=== PATIENT | female | born 1940 | race Caucasian/White ===

== ENCOUNTER 2019-01-19 09:12 | Emergency (ER) | payer MEDICARE, SELFPAY ==
[2019-01-19 09:13] VITALS: BP 141/64; PULSE 83; RESP 18; TEMP 36.6; O2SAT 98; BMI 16.8
[2019-01-19 09:29] VITALS: BP 129/66; PULSE 78; RESP 16; O2SAT 97
--- NOTE | 2019-01-19 09:38 | ED.DCSUM_ITS ---
History of Present Illness Chief Complaint: GI Bleed Informant: Significant Other, SNF Limited by: Dementia - Patient is an elderly woman with significant dementia who was recently diagnosed with colon cancer with 3+ nodes. states there was a family discussion and they decided to forego radiation or chemotherapy. Patient has significant dementia. She was unable to answer questions. 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 Status: Acute Past Medical History - Allergies and Home Meds Allergies/Adverse Reactions: Allergies No Known Allergies Allergy (Verified 01/19/19 09:32) Primary Care Physician: Rom Shah MD [Primary Care Provider] - Smoking Status: Never smoker Review of Systems ROS: Unable to Obtain Gastrointestinal: Reports: Vomiting - With possible blood/coffee-ground Physical Exam Vital Signs/Narrative: Vital Signs Temp Pulse Resp BP Pulse Ox 01/19/19 09:13 98 F 83 18 141/64 H 98 Inital Vital Signs reviewed: Yes General: Well developed, Cachectic Head: Normocephalic, Atraumatic Eyes: Perrl, EOMI ENT: Moist mucous membranes, No rhinorrhea Neck: Supple, Nontender, No lymphadenopathy, No JVD Cardiovascular: Regular rate, Regular rhythm, No murmurs, Normal S1, Normal S2 Respiratory: No distress, CTA bilaterally, Chest nontender Abdomen: Soft, Nontender, Nondistended, Normal bowel sounds, No masses, - - Br own soft stool noted in colostomy bag. Back: Nontender Extremities: Nontender, No edema Skin: No rash, Pallor Neurological: Alert, Cranial nerves II-XII grossly intact. Negative for: Oriented x3, Normal Strength, Normal Sensation Psychological: - - Unable to determine Diagnostic/Tx/Re-eval 01/19/19 09:30 Abdomen Single View (Portable) [RAD] Stat Laboratory Results 01/19/19 01/19/19 09:55 09:55 WBC 7.8 RBC 4.85 Hgb 15.0 Hct 45.7 MCV 94.2 MCH 30.9 MCHC 32.8 RDW 14.6 RDW Differential 49.1 H Plt Count 249 MPV 10.2 Immature Gran % (Auto) 0.000 Neut % (Auto) 88.7 H Lymph % (Auto) 6.[address] [place] % (Auto) 4.3 Eos % (Auto) 0.5 Baso % (Auto) 0.1 Absolute Neuts (auto) 7.0 Absolute Lymphs (auto) 0.50 L Total Counted Not Reportable Sodium 138 Potassium 4.0 Chloride 101 Carbon Dioxide 29.0 Anion Gap 8 BUN 23 H Creatinine 0.71 Estim Creat Clear Calc 29.56 Est GFR (MDRD) Af Amer 103 Est GFR (MDRD) Non-Af 85 BUN/Creatinine Ratio 32.6 H Glucose 194 H Calcium 9.5 - Medical Decision Making states she did not undergo chemoradiation therapy to gain a few more months versus quality of life. Discussed specifically CODE STATUS. Per discussion no CPR or intubation. Once results are back will discuss specifics. To evaluate patient's presentation NG was placed is to determine if there is active bleeding. CBC to assess H&H and if there is a drop as well as basic metabolic panel to evaluate for elevated BUN to creatinine ratio. NG reveals greenish bilious emesis. There is no blood or coffee grounds noted. BUN to creatinine ratio is elevated consistent with dehydration. 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
[2019-01-19] MEDS: Ondansetron 4 MG/2 ML Vial IV (09:55)
[2019-01-19 10:20] LABS: Basophil# 0.01 X10^3/uL; Basophil% 0.1 % (0-1); Differential Indicated SCAN CRITERIA MET; Eosinophil# 0.04 X10^3/uL; Eosinophils% 0.5 % (0-5); Hematocrit 45.7 % (37-47); Lymphocyte % 6.4 % (19-41); Mean Corp Hgb Conc 32.8 g/gl (32-36); Mean Corpuscular Hgb 30.9 pg (27.0-32.0); Mean Corpuscular Volume 94.2 fL (81-99); Mean Platelet Vol. 10.2 fl (6.2-12.0); Monocyte# 0.34 X10^3/uL; Monocyte% 4.3 % (0-10); Neutrophil # 6.95 X10^3/uL (2.7-7.7); Neutrophil % 88.7 % (47-70); POSITIVE COUNT NO; POSITIVE DIFFERENTIAL YES; POSITIVE MORPHOLOGY NO; Platelet Count 249 K/mm3 (150-450); RBC Distribution Width CV 14.6 % (11.6-14.6); RBC Distribution Width SD 49.1 fl (35.1-43.9); Red Blood Count 4.85 M/mm3 (4.2-5.4); White Blood Count 7.8 K/mm3 (4.4-11.0)
[2019-01-19 10:23] LABS: Anion Gap 8 (5-15); BUN 23 mg/dL (7-18); BUN/Creat Ratio 32.6 RATIO (10-20); Calcium,Total 9.5 mg/dL (8.5-10.1); Chloride 101 mmol/L (98-107); Creatinine, Serum 0.71 mg/dL (0.55-1.02); EST Glomerular Filtration Rate 85 mL/min (>60); Est Glom Filt Rate - Afr Amer 103 mL/min (>60); Estimated Creatinine Clearance 29.56 ml/min; Glucose 194 mg/dL (74-106); Sodium Level 138 mmol/L (136-145)
[2019-01-19 11:33] VITALS: BP 132/74; O2SAT 97
== END 2019-01-19 12:25 ==
PROVIDERS: Emergency Provider Emergency Medicine; Family Provider Family Medicine; PCP Family Medicine
DX: R11.2 Nausea with vomiting, unspecified (principal); C18.9 Malignant neoplasm of colon, unspecified; C77.2 Secondary and unspecified malignant neoplasm of intra-abdominal lymph nodes; F03.90 Unspecified dementia, unspecified severity, without behavioral disturbance, psychotic disturbance, mood disturbance, and anxiety; Z93.3 Colostomy status; Z66 Do not resuscitate
CPT/HCPCS: 80048; 85025; 96374; 99285; A4216; J2405

== ENCOUNTER → 2019-09-08 05:00 | Outpatient (REF) | payer MEDICARE, SELFPAY ==
[2019-09-08 09:01] LABS: Absolute Neutrophil Count 3.4 X10^3/uL (2.0-7.7); Basophil# 0.03 X10^3/uL; Basophil% 0.6 % (0-1); Eosinophil# 0.19 X10^3/uL; Eosinophils% 3.5 % (0-5); Hematocrit 34.5 % (37-47); Hemoglobin 11.3 g/dL (12.0-15.0); Lymphocyte % 22.3 % (19-41); Mean Corp Hgb Conc 32.8 g/dL (32-36); Mean Corpuscular Hgb 32.4 pg (27.0-32.0); Mean Corpuscular Volume 98.9 fL (81-99); Mean Platelet Vol. 10.1 fl (6.2-12.0); Monocyte# 0.52 X10^3/uL; Monocyte% 9.7 % (0-10); NRBC Flagged by Analyzer 0 % (0-5); Neutrophil # 3.42 X10^3/uL (2.7-7.7); Neutrophil % 63.7 % (47-70); POSITIVE MORPHOLOGY YES; Platelet Count 264 K/mm3 (150-450); RBC Distribution Width CV 23.4 % (11.6-14.6); RBC Distribution Width SD 82.8 fl (35.1-43.9); Red Blood Count 3.49 M/mm3 (4.2-5.4); White Blood Count 5.4 K/mm3 (4.4-11.0)
[2019-09-08 09:07] LABS: Differential Indicated SCAN CRITERIA MET
[2019-09-08 09:44] LABS: Anisocytosis 2+; Differential Comment SCANNED
== END ==
LOC: OLS.DANBUR 05:00
DX: F03.90 Unspecified dementia, unspecified severity, without behavioral disturbance, psychotic disturbance, mood disturbance, and anxiety (principal); C18.9 Malignant neoplasm of colon, unspecified
CPT/HCPCS: 36415; 85025

== ENCOUNTER → 2019-09-12 05:00 | Outpatient (REF) | payer MEDICARE, SELFPAY ==
[2019-09-12 08:17] LABS: Hematocrit 34.2 % (37-47); Hemoglobin 11.4 g/dL (12.0-15.0); Mean Corp Hgb Conc 33.3 g/dL (32-36); Mean Corpuscular Hgb 33.3 pg (27.0-32.0); POSITIVE MORPHOLOGY YES; Platelet Count 236 K/mm3 (150-450); RBC Distribution Width CV 23.8 % (11.6-14.6); RBC Distribution Width SD 84.7 fl (35.1-43.9); Red Blood Count 3.42 M/mm3 (4.2-5.4); White Blood Count 6.3 K/mm3 (4.4-11.0)
[2019-09-12 08:18] LABS: Scan Indicated on CBC? Y/N YES- FLAGS NOTED
[2019-09-12 08:51] LABS: Differential Comment SCANNED
== END ==
LOC: OLS.DANBUR 05:00
DX: F03.90 Unspecified dementia, unspecified severity, without behavioral disturbance, psychotic disturbance, mood disturbance, and anxiety (principal); C18.9 Malignant neoplasm of colon, unspecified
CPT/HCPCS: 36415; 85027

== ENCOUNTER → 2019-09-21 05:00 | Outpatient (REF) | payer MEDICARE, SELFPAY ==
[2019-09-21 09:13] LABS: Hematocrit 34.1 % (37-47); Hemoglobin 11.4 g/dL (12.0-15.0); Mean Corp Hgb Conc 33.4 g/dL (32-36); Mean Corpuscular Hgb 33.9 pg (27.0-32.0); Mean Corpuscular Volume 101.5 fL (81-99); Mean Platelet Vol. 10.7 fl (6.2-12.0); POSITIVE MORPHOLOGY YES; Platelet Count 222 K/mm3 (150-450); RBC Distribution Width CV 23.4 % (11.6-14.6); RBC Distribution Width SD 84.4 fl (35.1-43.9); Red Blood Count 3.36 M/mm3 (4.2-5.4); White Blood Count 7.5 K/mm3 (4.4-11.0)
[2019-09-21 09:34] LABS: Scan Indicated on CBC? Y/N YES- FLAGS NOTED
[2019-09-21 10:01] LABS: Differential Comment SCANNED
[2019-09-22 15:36] LABS: Carcinoembryonic Antigen 198.5 ng/mL (0.0-4.7)
== END ==
LOC: OLS.DANBUR 05:00
DX: F03.90 Unspecified dementia, unspecified severity, without behavioral disturbance, psychotic disturbance, mood disturbance, and anxiety (principal); C18.9 Malignant neoplasm of colon, unspecified
CPT/HCPCS: 36415; 82378; 85027

== ENCOUNTER → 2019-09-28 05:00 | Outpatient (REF) | payer MEDICARE, SELFPAY ==
[2019-09-28 07:30] LABS: Hematocrit 32.5 % (37-47); Hemoglobin 10.8 g/dL (12.0-15.0); Mean Corp Hgb Conc 33.2 g/dL (32-36); Mean Corpuscular Volume 102.2 fL (81-99); Mean Platelet Vol. 10.9 fl (6.2-12.0); POSITIVE MORPHOLOGY YES; Platelet Count 265 K/mm3 (150-450); RBC Distribution Width CV 21.6 % (11.6-14.6); Red Blood Count 3.18 M/mm3 (4.2-5.4); White Blood Count 6.9 K/mm3 (4.4-11.0)
[2019-09-28 07:37] LABS: Scan Indicated on CBC? Y/N YES- FLAGS NOTED
[2019-09-28 08:02] LABS: Differential Comment SCANNED
== END ==
LOC: OLS.DANBUR 05:00
DX: F03.90 Unspecified dementia, unspecified severity, without behavioral disturbance, psychotic disturbance, mood disturbance, and anxiety (principal); C18.9 Malignant neoplasm of colon, unspecified
CPT/HCPCS: 36415; 85027

== ENCOUNTER → 2019-10-05 05:00 | Outpatient (REF) | payer MEDICARE, SELFPAY ==
[2019-10-05 08:28] LABS: Hemoglobin 10.7 g/dL (12.0-15.0); Mean Corp Hgb Conc 33.4 g/dL (32-36); Mean Corpuscular Hgb 34.3 pg (27.0-32.0); Mean Corpuscular Volume 102.6 fL (81-99); Mean Platelet Vol. 10.1 fl (6.2-12.0); POSITIVE MORPHOLOGY YES; Platelet Count 312 K/mm3 (150-450); RBC Distribution Width CV 20.8 % (11.6-14.6); RBC Distribution Width SD 78.1 fl (35.1-43.9); Red Blood Count 3.12 M/mm3 (4.2-5.4); White Blood Count 7.5 K/mm3 (4.4-11.0)
[2019-10-05 08:44] LABS: Scan Indicated on CBC? Y/N YES- FLAGS NOTED
[2019-10-05 09:11] LABS: Differential Comment SCANNED
== END ==
LOC: OLS.DANBUR 05:00
PROVIDERS: Family Provider Family Medicine; PCP Family Medicine
DX: C18.9 Malignant neoplasm of colon, unspecified (principal); F03.90 Unspecified dementia, unspecified severity, without behavioral disturbance, psychotic disturbance, mood disturbance, and anxiety
CPT/HCPCS: 36415; 85027

== ENCOUNTER → 2019-10-12 05:00 | Outpatient (REF) | payer MEDICARE, SELFPAY ==
[2019-10-12 07:18] LABS: Hematocrit 31.9 % (37-47); Hemoglobin 10.8 g/dL (12.0-15.0); Mean Corp Hgb Conc 33.9 g/dL (32-36); Mean Corpuscular Volume 103.2 fL (81-99); Mean Platelet Vol. 10.6 fl (6.2-12.0); POSITIVE MORPHOLOGY YES; Platelet Count 258 K/mm3 (150-450); RBC Distribution Width CV 20.6 % (11.6-14.6); Red Blood Count 3.09 M/mm3 (4.2-5.4); White Blood Count 10.3 K/mm3 (4.4-11.0)
[2019-10-12 07:23] LABS: Scan Indicated on CBC? Y/N YES- FLAGS NOTED
== END ==
LOC: OLS.DANBUR 05:00
PROVIDERS: Family Provider Family Medicine; PCP Family Medicine
DX: F03.90 Unspecified dementia, unspecified severity, without behavioral disturbance, psychotic disturbance, mood disturbance, and anxiety (principal); C18.9 Malignant neoplasm of colon, unspecified
CPT/HCPCS: 36415; 85027